=== PATIENT | male | born 1940 | race Caucasian/White ===

== ENCOUNTER 2018-12-30 09:47 | Emergency (ER) | payer MEDICARE ==
[2018-12-30] MEDS ORDERED: LIDOCAINE HCL 1% MDV 50 ML SOL SC ONE (10:53)
[2018-12-30] MEDS ORDERED: LIDOCAINE HCL 1% MPF 30 SOL ONE (10:55)
[2018-12-30 12:30] VITALS: BP 165/85; PULSE 78; RESP 18; TEMP 97.2; O2SAT 98
== END 2018-12-30 13:15 | disposition home or self-care (01) | DRG 159 ==
LOC: ED 09:47
DX: S01.511A Laceration without foreign body of lip, initial encounter (principal); W20.8XXA Other cause of strike by thrown, projected or falling object, initial encounter; S09.90XA Unspecified injury of head, initial encounter; S02.5XXA Fracture of tooth (traumatic), initial encounter for closed fracture
CPT/HCPCS: 12011; 12051; 70486; 99285; A6402; J2001